=== PATIENT | female | born 1985 | race American Indian/Alaskan Native ===

== ENCOUNTER 2017-11-30 17:00 | Emergency (ER) | payer MEDICAID, OTHER ==
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
[2017-11-30] MEDS ORDERED: ULTRAM PO ONE (20:13)
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
[2017-11-30 22:38] VITALS: BP 112/61
== END 2017-11-30 22:38 | disposition home or self-care (01) ==
LOC: ED 17:00
DX: S76.012A Strain of muscle, fascia and tendon of left hip, initial encounter (principal); S46.812A Strain of other muscles, fascia and tendons at shoulder and upper arm level, left arm, initial encounter; S46.811A Strain of other muscles, fascia and tendons at shoulder and upper arm level, right arm, initial encounter; V49.49XA Driver injured in collision with other motor vehicles in traffic accident, initial encounter; Y93.89 Activity, other specified; Y92.89 Other specified places as the place of occurrence of the external cause; Y99.8 Other external cause status
CPT/HCPCS: 72040; 99283